=== PATIENT | female | born 1960 | race Caucasian/White ===

== ENCOUNTER → 2016-07-21 | Outpatient (CLI) | payer MEDICAID ==
--- NOTE | 2016-07-21 15:16 | XR ---
EXAMINATION TYPE: XR foot complete bilateral DATE OF EXAM ORDERED: 07/21/2016 3:02 PM HISTORY: R52 pain. COMPARISON: None. FINDINGS: There are bilateral plantar calcaneal spurs. There are hammertoes of the second through fo urth digits both feet. No fracture, dislocation or other acute osseous lesion is seen. IMPRESSION: 1. NO ACUTE OSSEOUS LESION. 2. HAMMERTOE DEFORMITIES. 3. BILATERAL PLANTAR CALCANEAL SPURS.
== END ==
LOC: RADXRMAIN 14:44
PROVIDERS: ATTEND Podiatrist Foot & Ankle Surgery
DX: M20.42 Other hammer toe(s) (acquired), left foot (principal); M20.41 Other hammer toe(s) (acquired), right foot; M77.32 Calcaneal spur, left foot; M77.31 Calcaneal spur, right foot

== ENCOUNTER 2018-10-17 09:12 | Emergency (ER) | payer MEDICAID ==
[2018-10-17 09:19] VITALS: RESP 18
--- NOTE | 2018-10-17 09:29 | ED ---
General Adult HPI - General Chief complaint: Extremity Injury, Lower Stated complaint: knee/leg pain Time Seen by Provider: 10/17/18 09:22 Source: patient, RN notes reviewed Mode of arrival: wheelchair Limitations: no limitations - History of Present Illness Initial comments: 58-year-old female with a past medical history of hyperlipidemia, hypertension presents to the emergency department for a chief complaint of right knee pain. Patient states that this has been ongoing since yesterday. States it is the superior lateral aspect of the right knee. States it is somewhat painful to walk on. States it is somewhat painful to bend as well. No fevers or chills. Denies any injuries. Denies any redness. Does state the pain sometimes shoots down the lateral aspect of her right lower leg. Denies any history of gout.Patient has no other complaints at this time including shortness of breath, chest pain, abdominal pain, nausea or vomiting, headache, or visual changes. - Related Data Home Medications Medication Instructions Recorded Confirmed Cholecalciferol (Vitamin D3) 2,000 unit PO DAILY 10/17/18 10/17/18 [Vitamin D3] Fenofibrate [Lofibra] 160 mg PO DAILY 10/17/18 10/17/18 Lisinopril 40 mg PO DAILY 10/17/18 10/17/18 [place]-3 Fatty Acids/Fish Oil [Fish 1 cap PO DAILY 10/17/18 10/17/18 Oil 1,000 mg Softgel] Allergies Allergy/AdvReac Type Severity Reaction Status Date / Time Penicillins Allergy Swelling Verified 10/17/18 09:36 Review of Systems ROS Statement: Those systems with pertinent positive or pertinent negative responses have been documented in the HPI. ROS Other: All systems not noted in ROS Statement are negative. Past Medical History Past Medical History: Hyperlipidemia, Hypertension History of Any Multi-Drug Resistant Organisms: None Reported Past Surgical History: Cholecystectomy, Hysterectomy Additional Past Surgical History / Comment(s): left lumpectomy Past Psychological History: No Psychological Hx Reported Smoking Status: Never smoker Past Alcohol Use History: Occasional Past Drug Use History: None Reported General Exam Limitations: no limitations General appearance: alert, in no apparent distress Head exam: Present: atraumatic, normocephalic, normal inspection Eye exam: Present: normal appearance, PERRL, EOMI. Absent: scleral icterus, conjunctival injection, periorbital swelling ENT exam: Present: normal exam, mucous membranes moist Neck exam: Present: normal inspection, full ROM. Absent: tenderness, meningismus, lymphadenopathy Respiratory exam: Present: normal lung sounds bilaterally. Absent: respiratory distress, wheezes, rales, rhonchi, stridor Cardiovascular Exam: Present: regular rate, normal rhythm, normal heart sounds. Absent: systolic murmur, diastolic murmur, rubs, gallop, clicks Extremities exam: Present: tenderness (Minimal tenderness in the superior lateral aspect of the right knee), normal capillary refill (Capillary refill is 2 seconds, DP pulse 2+.), joint swelling (Mild edema noted superior to the right knee as well as superior lateral to the right knee), other (Sensation intact in the right lower extremity). Absent: full ROM (Patient has 90 flexion of the right knee with full extension), pedal edema, calf tenderness (No significant Tenderness, negative Homans sign.) Course Vital Signs 10/17/18 09:17 Temperature 98.2 F Pulse Rate 71 Respiratory 18 Rate Blood Pressure 143/92 O2 Sat by Pulse 96 Oximetry Medical Decision Making - Medical Decision Making 58-year-old female presents to the emergency department for a chief of right knee pain. Patient states this has been ongoing since yesterday. Denies injury. Denies erythema or fever. States it feels spasming above her right knee. On exam patient has some mild edema noted proximal molar to the right knee as well as somewhat laterally. No swelling in the right calf, negative Homans sign. X-rays does show a small joint effusion which is consistent with physical exam. No erythema or increased warmth. No concern for infection at this time. Gualberto wrap was applied. Discussed following up with ortho in 1-2 days. Discussed returning here if she has any worsening symptoms. Disposition Clinical Impression: Effusion of right knee joint Disposition: HOME SELF-CARE Condition: Good Instructions (If sedation given, give patient instructions): Knee Pain (ED), Swollen Knee Joint (ED) Additional Instructions: Please use Gualberto wrap while awake. Please follow-up with orthopedics in one to 2 days. Return here to the emergency department if you have any worsening symptoms. Is patient prescribed a controlled substance at d/c from ED?: No Referrals: Caleb Lockett MD [Primary Care Provider] - 1-2 days Momo Sexton MD [STAFF PHYSICIAN] - 1-2 days Time of Disposition: 10:28
[2018-10-17] MEDS ORDERED: KETOROLAC 30 MG/ML 1 ML VIAL IM STA (09:40)
--- NOTE | 2018-10-17 09:51 | XR ---
EXAMINATION TYPE: XR knee complete RT , 3 VIEWS DATE OF EXAM ORDERED: 10/17/2018 HISTORY: Pain. COMPARISON: None. FINDINGS: There is medial joint space loss. There is remodeling change in the medial compartment and there is some chondrocalcinosis. There is a small knee joint effusion. There is remodeling change in the patellofemoral joint. No fracture or dislocation is seen. IMPRESSION: 1. MILD OSTEOARTHRITIS. 2. SMALL JOINT EFFUSION.
[2018-10-17 11:01] VITALS: BP 120/98; PULSE 72; TEMP 98.5
== END 2018-10-17 11:01 | disposition home or self-care (01) ==
LOC: EC 09:12
DX: M25.461 Effusion, right knee (principal); E78.5 Hyperlipidemia, unspecified; I10 Essential (primary) hypertension; Z79.899 Other long term (current) drug therapy; Z88.0 Allergy status to penicillin
CPT/HCPCS: 73562; 99283; 96372; J1885